=== PATIENT | female | born 1980 | race Caucasian/White ===

== ENCOUNTER 2021-08-14 05:59 | Day surgery (SDC) | payer BC ==
--- NOTE | 2021-08-08 11:09 | HP ---
DATE OF SURGERY: 08/14/2021 HISTORY OF PRESENT ILLNESS: The patient presents with complaints of varicose veins on the right lower extremity. The patient states they have been there for seven years now. It is painful for her to have anything on her lap and have to elevate the leg to be pain free. The pain was tensing at times mostly constant. She does have to work on her feet all day making this pain worse. There is some itching and burning at times. There is bulging of the veins and is progressively getting worse. The veins are large and they bulge from the right thigh and mid right lower extremity. PAST MEDICAL HISTORY: None. PAST SURGICAL HISTORY: Appendectomy. Ovarian cyst removal. ALLERGIES: SULFA. DEMEROL. MEDICATIONS: Multivitamin. FAMILY HISTORY: Hodgkin's lymphoma, diabetes, skin cancer. SOCIAL HISTORY: None. REVIEW OF SYSTEMS: CONSTITUTIONAL: Denies fever or chills. CHEST: Denies shortness of breath. CVS: Denies chest pain. ABDOMEN: Denies abdominal pain. EXTREMITIES: Complains of right lower extremity pain. PHYSICAL EXAMINATION: GENERAL: No acute distress. CHEST: Nonlabored. No shortness of breath. CVS: Regular rate and rhythm. ABDOMEN: Soft, nontender. INTEGUMENTARY: Right lower extremity varicose veins. IMPRESSION: Symptomatic varicose veins in the right lower extremity. PLAN: Right thigh and right lower extremity segmental vein stripping with Dr. Enrique Lawson. As dictated by Marion Wilson NP.
[2021-08-14] MEDS ORDERED: Lactated Ringers 1,000 ML IV SCH (06:00)
[2021-08-14] MEDS ORDERED: Lactated Ringers 1,000 ML IV ONE ×2 (06:36→08:27)
[2021-08-14] MEDS ORDERED: Transderm Scop 1.5MG Patch TOP PRN (07:22)
[2021-08-14] MEDS ORDERED: Quelicin Fliptop 200 MG/10 ML ONE (07:36)
[2021-08-14] MEDS ORDERED: Zofran 4 MG/2 ML VIAL ONE (07:36)
[2021-08-14] MEDS ORDERED: Decadron 4 MG INJ ONE (07:36)
[2021-08-14] MEDS ORDERED: DIPRIVAN 200 MG/20 ML IV ONE (07:36)
[2021-08-14] MEDS ORDERED: SUBLIMAZE 100 MCG/2 ML ONE ×3 (07:37→10:16)
[2021-08-14] MEDS ORDERED: Versed 2 MG/2 ML Injection ONE (07:37)
[2021-08-14] MEDS ORDERED: Ketamine HCl 50 MG/ML ONE (07:38)
[2021-08-14] MEDS ORDERED: Xylocaine-Mpf 2% 5 Ml Vial ONE (07:39)
[2021-08-14] MEDS ORDERED: Pre-Attached Lta Kit TP ONE (07:45)
[2021-08-14] MEDS ORDERED: OFIRMEV 100 ML IV ONE (07:45)
[2021-08-14] MEDS ORDERED: KEFZOL 1 GM ONE (08:17)
[2021-08-14] MEDS ORDERED: Ephedrine Sulfate 50 MG/ML ONE (08:45)
[2021-08-14] MEDS ORDERED: Hydromorphone 1 mg/ml Injection ONE (10:16)
[2021-08-14] MEDS ORDERED: NORCO 5/325 MG PO PRN (10:52)
[2021-08-14] MEDS ORDERED: NORCO 5/325 MG ONE (10:57)
--- NOTE | 2021-08-14 11:16 | OP ---
SURGERY DATE/TIME: 08/14/2021 0755 PREOPERATIVE DIAGNOSIS: Severe varicosities right thigh, right knee and right upper calf. POSTOPERATIVE DIAGNOSIS: Severe varicosities right thigh, right knee and right upper calf. PROCEDURE: Segmental extraction of some 20 to 25 varicose veins through segmental transverse incisions with closure of these incisions. SURGEON: Enrique Lawson M.D. WORM GROWER: Marion Wilson NP. ANESTHESIA: General. COMPLICATIONS: None. CONDITION: Stable. INDICATION: The patient has severe varicose veins. They were marked preoperatively. DESCRIPTION OF PROCEDURE: She is taken to surgery. She was turned laterally and about 20 to 25 areas were marked. Segmental veins were pulled out. They were tied proximally and distally. There were then closed with 4-0 Vicryl and then compression dressing was applied. The patient tolerated the procedure satisfactorily.
[2021-08-14 12:03] VITALS: O2SAT 96
[2021-08-14 12:10] VITALS: BP 124/75; PULSE 82
== END 2021-08-14 12:30 | disposition home or self-care (01) ==
LOC: SDC 05:59
PROVIDERS: ATTEND Surgery
DX: I83.811 Varicose veins of right lower extremity with pain (principal)
CPT/HCPCS: 84703; J0330; J0690; J1100; J1170; J2250; J2405; J2704; J3010; A9270-GY